=== PATIENT | female | born 1980 | race Native Hawaiian/Other Pacific Islander ===

== ENCOUNTER 2018-06-12 08:17 | Outpatient (CLI) | payer OTHER ==
[2018-06-12 08:40] LABS: PLATELET COUNT 234 K/uL (152-353)
== END 2018-06-12 23:00 | disposition home or self-care (01) ==
LOC: LABW 08:17
PROVIDERS: Podiatrist
DX: Z01.810 Encounter for preprocedural cardiovascular examination (principal); Z01.811 Encounter for preprocedural respiratory examination; Z01.812 Encounter for preprocedural laboratory examination
CPT/HCPCS: 36415; 80053; 85027

== ENCOUNTER 2020-05-14 10:29 | Outpatient (CLI) | payer OTHER | END 2020-05-14 20:12 | disposition home or self-care (01) | LOC: RAD 10:29 | PROVIDERS: ATTEND Internal Medicine | DX: J40 Bronchitis, not specified as acute or chronic (principal); R07.9 Chest pain, unspecified; R05 Cough ==

== ENCOUNTER 2020-07-28 14:05 | Outpatient (CLI) | payer OTHER ==
[2020-07-28 14:19] LABS: PLATELET COUNT 263 K/uL (152-353)
[2020-07-28 14:38] LABS: POTASSIUM 3.8 mmol/L (3.6-5.2)
== END 2020-07-28 20:10 | disposition home or self-care (01) ==
LOC: LAB 14:05
PROVIDERS: ATTEND Nurse Practitioner Family
DX: R10.13 Epigastric pain (principal)
CPT/HCPCS: 80053; 82150; 83690; 85027

== ENCOUNTER 2020-07-29 07:51 | Outpatient (CLI) | payer OTHER | END 2020-07-29 19:24 | disposition home or self-care (01) | LOC: US 07:51 | PROVIDERS: ATTEND Nurse Practitioner Family | DX: R10.13 Epigastric pain (principal) ==

== ENCOUNTER 2020-09-09 08:06 | Outpatient (CLI) | payer OTHER | END 2020-09-09 19:59 | disposition home or self-care (01) | LOC: NM 08:06 | PROVIDERS: ATTEND Nurse Practitioner Family | DX: R10.11 Right upper quadrant pain (principal) | CPT/HCPCS: A9537 ==

== ENCOUNTER 2020-09-14 09:10 | Emergency (ER) | payer OTHER ==
[~2020-09-14] VITALS: Ht 152.4 cm; Wt 146.1 kg
[2020-09-14 10:29] LABS: PLATELET COUNT 240 K/uL (152-353)
[2020-09-14 10:41] LABS: POTASSIUM 3.5 mmol/L (3.6-5.2)
[2020-09-14 11:15] VITALS: BP 152/91; TEMP 98
== END 2020-09-14 11:15 | disposition home or self-care (01) ==
LOC: ED 09:10
PROVIDERS: Emergency Medicine Emergency Medical Services
DX: R10.13 Epigastric pain (principal); G89.29 Other chronic pain; K27.9 Peptic ulcer, site unspecified, unspecified as acute or chronic, without hemorrhage or perforation
CPT/HCPCS: 36415; 80053; 81000; 82150; 83690; 85027; 96360; 99284; J1885; J2405; J3490

== ENCOUNTER 2021-04-28 09:17 | Outpatient (CLI) | payer OTHER ==
[~2021-04-28] VITALS: Ht 157.5 cm; Wt 145.1 kg
[2021-04-28 10:08] VITALS: BP 120/82; TEMP 98.8
--- NOTE | 2021-04-28 11:12 | NUR ---
1108 INFUSION COMPLETE. NO ADVERSE REACTION NOTED. HR 89, O2 SAT 95%.
== END 2021-04-28 20:15 | disposition home or self-care (01) ==
LOC: RAD 09:17 → INF 09:17
PROVIDERS: ATTEND Nurse Practitioner Family
DX: Z23 Encounter for immunization (principal); U07.1 COVID-19
CPT/HCPCS: 96365; M0244

== ENCOUNTER 2021-04-28 23:48 | Emergency (ER) | payer OTHER ==
[~2021-04-28] VITALS: Ht 157.5 cm; Wt 145.2 kg
[2021-04-29 00:39] LABS: POTASSIUM 3.2 mmol/L (3.6-5.2)
[2021-04-29 00:47] LABS: PLATELET COUNT 164 K/uL (152-353)
[2021-04-29 01:00] VITALS: BP 118/66; TEMP 98.5
== END 2021-04-29 01:15 | disposition home or self-care (01) ==
LOC: ED 23:48
PROVIDERS: Hospitalist
DX: U07.1 COVID-19 (principal); J06.9 Acute upper respiratory infection, unspecified; R50.9 Fever, unspecified
CPT/HCPCS: 36600; 80048; 82805; 85027; 96374; 99284; J1100

== ENCOUNTER 2021-04-30 13:26 | Outpatient (CLI) | payer OTHER | END 2021-04-30 19:17 | disposition home or self-care (01) | LOC: RAD 13:26 | PROVIDERS: ATTEND Nurse Practitioner Family | DX: U07.1 COVID-19 (principal) ==

== ENCOUNTER 2021-10-11 07:30 | Outpatient (CLI) | payer OTHER | END 2021-10-11 18:57 | disposition home or self-care (01) | LOC: RAD 07:30 | PROVIDERS: ATTEND Nurse Practitioner Family | DX: M25.551 Pain in right hip (principal); M54.50 Low back pain, unspecified ==